=== PATIENT | female | born 1950 | race Caucasian/White ===

== ENCOUNTER 2017-01-04 12:34 | Outpatient (CLI) | payer MEDICARE ==
--- NOTE | 2017-01-04 13:44 | Mammography Report ---
DIGITAL DIAGNOSTIC BILATERAL MAMMOGRAM: 01/04/2017 CLINICAL INDICATION: Left breast tenderness lower outer quadrant. COMPARISON: 03/2015, 12/2013, 11/2011, 11/2010, 12/2008, 11/2007. TECHNIQUE: Bilateral CC and MLO views, left true lateral and laterally exaggerated craniocaudal view s. Markers were placed at the site of maximal tenderness identified by the patient in the left lower outer quadrant. FINDINGS: The breasts again demonstrate scattered fibroglandular densities bilaterally. A few coars e, typically benign calcifications are present. No suspicious masses, clustered microcalcifications, or regions of architectural distortion are identified. Specifically, no mammographic abnormality is appreciated in the left lower outer quadrant, at the site indicated by the markers. IMPRESSION: BENIGN FINDINGS. RECOMMENDATION: Routine annual screening unless otherwise clinically indicated. BI-RADS category 2, benign findings. STANDARD QUALIFYING STATEMENTS 1. This examination was reviewed with the aid of Computer-Aided Detection (CAD). 2. A negative or benign imaging report should not delay biopsy if clinically suspicious findings are present. Consider surgical consultation if warranted. More than 5% of cancers are not identified by i ing. 3. Dense breasts may obscure an underlying neoplasm. JOB #: [id number] EXT JOB #:
== END 2017-01-04 12:35 | disposition home or self-care (01) ==
LOC: DI 12:34
PROVIDERS: ATTEND Nurse Practitioner Family
DX: N64.4 Mastodynia (principal)
CPT/HCPCS: 77066

== ENCOUNTER 2019-01-30 10:07 | Outpatient (CLI) | payer MEDICARE ==
--- NOTE | 2019-01-30 14:48 | Mammography Report ---
Reason: SCREENING MAMMOGRAPHY Procedure Date: 01/30/2019 Accession Number: [id number] / [id number] Procedure: OCTAVIO - Screening Mammo w/Tejas CPT Code: FULL RESULT: EXAM: Screening Mammo w/Tejas DATE: 01/30/2019 10:40 AM CLINICAL HISTORY: Screening TECHNIQUE: (B) - Bilateral CC and MLO views were obtained. COMPARISON: 01/04/2017, 04/29/2015, 01/15/2014 PARENCHYMAL PATTERN: (A) - The breasts demonstrate scattered fibroglandular densities bilaterally. FINDINGS: There are no suspicious masses, calcifications, or areas of distortion. IMPRESSION: Negative examination. BI-RADS category 1. RECOMMENDATION: (ANNUAL) - Recommend routine annual screening mammography. BI-RADS CATEGORY: (1) - Negative. STANDARD QUALIFYING STATEMENTS: 1. This examination was not reviewed with the aid of Computer-Aided Detection (CAD). 2. A negative or benign imaging report should not preclude biopsy if clinically suspicious findings are present. 3. Dense breasts may obscure an underlying neoplasm. 4. This examination was reviewed with the aid of 3D breast imaging (tomosynthesis).
== END 2019-01-30 10:08 | disposition home or self-care (01) ==
LOC: DI 10:07
PROVIDERS: ATTEND Registered Nurse
DX: Z12.31 Encounter for screening mammogram for malignant neoplasm of breast (principal)
CPT/HCPCS: 77063; 77067

== ENCOUNTER 2019-02-06 14:09 | Outpatient (CLI) | payer MEDICARE ==
--- NOTE | 2019-02-10 12:15 | DEXA Report ---
Reason: POSTMENOPAUSAL,SCREENING FOR OSTEOPOROSIS Procedure Date: 02/06/2019 Accession Number: [id number] / [id number] Procedure: DEX - Dexa Spine and/or Hip CPT Code: FULL RESULT: EXAM: Dexa Spine and/or Hip DATE: 02/06/2019 2:34 PM CLINICAL HISTORY: POSTMENOPAUSAL,SCREENING FOR OSTEOPOROSIS TECHNIQUE: Dual energy x-ray absorptiometry (DXA) was performed on a Aspida System. Regions measured are the AP Spine, femoral neck, and if needed forearm. COMPARISON: None. In accordance with the International Society for Clinical Densitometry (ISCD) guidelines, data from previous exams may be reanalyzed using current recommendations and techniques. This is done to allow a more accurate basis for comparison with the current study. FINDINGS: The data for the lumbar spine is as follows: BMD (g/cm/cm) T-SCORE Z-SCORE REGION L1 1.201 0.6 1.8 L2 1.443 2.0 3.2 L3 1.453 2.1 3.3 L4 1.407 1.7 2.9 TOTAL 1.382 1.7 2.9 NOTE: All evaluable vertebrae are used for classification The data for the hip is as follows: BMD (g/cm/cm) T-SCORE Z-SCORE REGION Neck 0.889 -1.1 0.3 TOTAL 0.941 -0.5 0.6 NOTE: The femoral neck or total proximal femur, whichever is lowest, is used for classification. IMPRESSION: THE WHO CLASSIFICATION BASED ON THE INTERNATIONAL REFERENCE STANDARD IS OSTEOPENIA. THE FRACTURE RISK IS INCREASED. RECOMMENDATION: Patients with diagnosis of osteoporosis or osteopenia should have regular bone mineral density assessment. For those eligible for Medicare, routine testing is allowed once every 2 years. Testing frequency can be increased for patients who have rapidly progressing disease or for those who are receiving medical therapy to restore bone mass. COMMENT: World Health Organization (WHO) definitions for osteoporosis and osteopenia: NORMAL BMD: T-score at -1.0 or higher, fracture risk is low OSTEOPENIA BMD: T-score between -1.0 and -2.5, fracture risk is increased. OSTEOPOROSIS BMD: T-score at -2.5 or lower, fracture risk is high. National Osteoporosis Foundation recommends: 1. Obtain adequate dietary calcium (at least 1200 mg per day) and vitamin D (400-800 international units per day). 2. Participate, as appropriate, in regular weightbearing and muscle-strengthening exercise. 3. Avoid tobacco use and reduce alcohol and caffeine intake. 4. For more detailed information see the website at www.NOF.org.
== END 2019-02-06 14:10 | disposition home or self-care (01) ==
LOC: DI 14:09
PROVIDERS: ATTEND Registered Nurse
DX: Z13.820 Encounter for screening for osteoporosis (principal); M85.88 Other specified disorders of bone density and structure, other site; Z78.0 Asymptomatic menopausal state
CPT/HCPCS: 77080

== ENCOUNTER 2019-12-11 18:37 | Outpatient (CLI) | payer MEDICARE | END 2019-12-11 18:38 | disposition EMS.NT | LOC: EMS 18:37 | PROVIDERS: ATTEND Surgery | DX: R09.89 Other specified symptoms and signs involving the circulatory and respiratory systems (principal) ==

== ENCOUNTER 2019-12-11 23:23 | Outpatient (CLI) | payer MEDICARE | END 2019-12-11 23:24 | disposition short-term general hospital (02) | LOC: EMS 23:23 | PROVIDERS: ATTEND Surgery | DX: R00.0 Tachycardia, unspecified (principal); R55 Syncope and collapse; R61 Generalized hyperhidrosis | CPT/HCPCS: A0425; A0427 ==

== ENCOUNTER 2020-11-11 13:55 | Outpatient (CLI) | payer MEDICARE ==
[2020-11-11 20:48] LABS: THYROID STIMULATING HORMONE 1.78 uIU/mL (0.34-5.60)
[2020-11-11 20:49] LABS: FREE T3 3.18 pg/mL (2.5-3.9)
[2020-11-11 20:50] LABS: FREE T4 (FREE THYROXINE) 1.08 ng/dL (0.58-1.64)
== END 2020-11-11 13:56 | disposition home or self-care (01) ==
LOC: LAB.S 13:55
PROVIDERS: ATTEND Registered Nurse
DX: E89.0 Postprocedural hypothyroidism (principal)
CPT/HCPCS: 36415; 84439; 84443; 84481

== ENCOUNTER 2021-09-08 10:11 | Outpatient (CLI) | payer MEDICARE ==
[2021-09-08 15:37] LABS: ALBUMIN 4.2 g/dL (3.2-5.5); ALBUMIN/GLOBULIN RATIO 1.6 (1.0-2.2); BILIRUBIN,TOTAL 0.7 mg/dL (0.2-1.0); CREATININE 0.7 mg/dL (0.4-1.0); POTASSIUM 3.4 mmol/L (3.5-5.0); TOTAL PROTEIN 6.9 g/dL (6.7-8.2)
[2021-09-08 16:21] LABS: FREE T3 2.99 pg/mL (2.5-3.9); FREE T4 (FREE THYROXINE) 0.99 ng/dL (0.58-1.64)
== END 2021-09-08 10:12 | disposition home or self-care (01) ==
LOC: LAB.S 10:11
PROVIDERS: ATTEND Registered Nurse
DX: I10 Essential (primary) hypertension (principal); E89.0 Postprocedural hypothyroidism
CPT/HCPCS: 36415; 80053; 84439; 84443; 84481

== ENCOUNTER 2022-08-04 05:54 | Emergency (ER) | payer MEDICARE ==
[2022-08-04 06:05] VITALS: BP 150/88
[2022-08-04] MEDS ORDERED: CHERRY SYRUP 10 ML UDC PO ONE (06:46)
[2022-08-04] MEDS ORDERED: DEXAMETHASONE 10 MG/ML VIAL PO STA (06:46)
--- NOTE | 2022-08-04 06:48 | ED Physician Documentation ---
PD HPI HEENT - Stated complaint Stated Complaint: MEDICATION REQUEST - Chief complaint Chief Complaint: Heent - History obtained from History obtained from: Patient, Family - History of Present Illness Timing - onset: How many days ago (5) Timing - duration: Days (5) Timing - details: Gradual onset, Still present Location: Left ear, Nose, Throat Improves: Medication Worsens: Swalllowing Associated symptoms: Congestion, Rhinorrhea, Cough, Other ("goopy" eyes). No: Fever Similar symptoms before: Diagnosis (OM) Recently seen: Clinic - Additional information Additional information: 71-year-old Camelia sprague has developed an upper respiratory tract infection with a cough and congestion she developed a sore throat associated with this and has had drainage and redness to her eyes. She had some congestion to her sinuses as well this is seems to be improved and despite this she is developing increasing pain and loss of hearing in the right ear. She has been in to see the eye doctor and has been given some TobraDex eyedrops. She is used these 3 times and is found that is helped with the gravel-like feeling in her eyes. Review of Systems Constitutional: denies: Fever Eyes: reports: Discharge, Irritation. denies: Decreased vision Ears: reports: Loss of hearing, Ear pain, Tinnitus/ringing Nose: reports: Rhinorrhea / runny nose, Congestion Throat: reports: Sore throat (Improved) Cardiac: denies: Chest pain / pressure, Palpitations Respiratory: reports: Cough. denies: Dyspnea, Wheezing GI: denies: Abdominal Pain, Vomiting, Diarrhea : denies: Dysuria, Frequency PD PAST MEDICAL HISTORY - Past Medical History Cardiovascular: Hypertension Respiratory: Sleep apnea Endocrine/Autoimmune: HyPERthyroidism, HyPOthyroidism GI: GERD Musculoskeletal: Osteoarthritis - Past Surgical History Past Surgical History: Yes General: Colonoscopy - Present Medications Home Medications: Ambulatory Orders Medication Instructions Recorded Confirmed Duloxetine HCl [Cymbalta] 80 mg PO DAILY 05/01/15 05/01/15 Hydroxychloroquine [Plaquenil] 200 mg PO DAILY 05/01/15 05/01/15 Levothyroxine [Synthroid] 150 mcg PO QDAC 05/01/15 05/01/15 Liothyronine [Cytomel] 5 mcg PO BID 05/01/15 05/01/15 Losartan [Cozaar] 100 mg PO DAILY 05/01/15 05/01/15 Omeprazole [Prilosec] 20 mg PO BID 05/01/15 05/01/15 Potassium Chloride [K-Dur] 20 meq PO 0800 05/01/15 05/01/15 Triamterene/Hydrochlorothiazid 1 each PO DAILY 05/01/15 05/01/15 [Triamterene-Hctz 37.5-25 mg Cp] diltiaZEM [Cardizem] 60 mg PO DAILY 05/01/15 05/01/15 Amox/Clav 875/125 [Augmentin] 1 each PO Q12H #20 tablet 08/04/22 - Allergies Allergies/Adverse Reactions: Allergies Allergy/AdvReac Type Severity Reaction Status Date / Time propylene glycol Allergy Rash Verified 08/04/22 06:05 - Social History Does the pt smoke?: No Smoking Status: Never smoker Does the pt drink ETOH?: Yes - Immunizations Immunizations are current?: No Immunizations: TDAP >10years/unknown - POLST Patient has POLST: No PD ED PE NORMAL - Vitals Vital signs reviewed: Yes (Hypertensive) - General General: Alert and oriented X 3, No acute distress, Well developed/nourished - HEENT HEENT: Atraumatic, PERRL, EOMI, Moist mucous membranes, Other (There is scleral injection bilaterally worse on the right than the left there is drainage from both eyes into the conjunctival sac. The left TM is clear the right is erythematous with distortion of landmarks. Pharynx with minimal erythema.) - Neck Neck: Supple, no meningeal sign, No bony TTP - Cardiac Cardiac: RRR, No murmur - Respiratory Respiratory: No respiratory distress, Clear bilaterally - Abdomen Abdomen: Soft, Non tender - Back Back: No CVA TTP, No spinal TTP - Derm Derm: Normal color, Warm and dry, No rash - Extremities Extremities: No deformity, No edema - Neuro Neuro: Alert and oriented X 3, sheet layer 2-12 intact, No motor deficit, No sensory deficit, Normal speech Eye Opening: Spontaneous Motor: Obeys Commands Verbal: Oriented GCS Score: 15 - Psych Psych: Normal mood, Normal affect Results - Vitals Vitals: Vital Signs - 24 hr 08/04/22 05:59 Temperature 36.8 C Heart Rate 72 Respiratory 18 Rate Blood Pressure 150/88 H O2 Saturation 97 Oxygen O2 Source Room air PD Medical Decision Making - ED course Complexity details: considered differential, d/w patient, d/w family ED course: 71-year-old female presents to the emergency department with drainage from her eyes and reduced hearing in her right ear. She has a feeling of fullness on the whole right side of her face. She is found to have otitis on the right side. She does have what appears to be a viral conjunctivitis. She is being treated appropriately for this. Today we are treating her otitis with 10 mg of dex amethasone we will place her on a course of Augmentin. Departure - Departure Disposition: Home, Self Care Clinical Impression: Otitis media Qualifiers: Otitis media type: suppurative Chronicity: acute Laterality: right Recurrence: non-recurrent Spontaneous tympanic membrane rupture: without spontaneous rupture Qualified Code(s): H66.001 - Acute suppurative otitis media without spontaneous rupture of ear drum, right ear Condition: Stable Instructions: ED Otitis Media Acute Adult Follow-Up: Caludia Nicholson ARNP [Physician No Access] - Prescriptions: Amox/Clav 875/125 [Augmentin] 1 each PO Q12H #20 tablet Comments: Camelia, today it looks like there is an infection in the right middle ear. This is usually a bacterial process and we are prescribing some antibiotic. This has been E scribed to the [facility] in [place]. The expectation with treatment is improvement today from the dexamethasone given and continued improvement over the next several days.
== END 2022-08-04 07:00 | disposition home or self-care (01) ==
LOC: ED 05:54
DX: H66.001 Acute suppurative otitis media without spontaneous rupture of ear drum, right ear (principal); I10 Essential (primary) hypertension; E05.90 Thyrotoxicosis, unspecified without thyrotoxic crisis or storm; E03.9 Hypothyroidism, unspecified; Z79.899 Other long term (current) drug therapy
CPT/HCPCS: 99282; 99283; A9270

== ENCOUNTER 2022-11-03 08:44 | Outpatient (CLI) | payer MEDICARE ==
--- NOTE | 2022-11-03 12:10 | Ultrasound Report ---
PROCEDURE: Abdomen Limited INDICATIONS: LIVER CYST TECHNIQUE: Real-time focused scanning was performed of the abdomen, with image documentation. COMPARISONS: None. FINDINGS: Liver: Liver is overall normal in size at 15.9 cm. Heterogenous echotexture. A large right-sided sim ple hepatic cyst measuring 14.3 x 12.5 x 12.2 cm Gallbladder: Several gallbladder polyps and noted measuring up to 6 mm. No shadowing calculi or gallb ladder wall thickening. No pericholecystic fluid.. Biliary ducts: Intrahepatic bile ducts are non-dilated. Extrahepatic bile duct caliber measures 4 m m. Normal is 6-7 mm or less in diameter, or 10 mm or less post-cholecystectomy. Pancreas: Visualized portions of the pancreas are sonographically normal. Right kidney: Normal in size and echotexture. Right kidney measures 10.7 cm long. Mild right kidney renal pelvis dilation. No solid masses. No complex renal cystic lesions which require follow-up. Aorta: Visualized aorta is normal in caliber at less than 3 cm. IVC: Intrahepatic inferior vena cava is patent. Miscellaneous: No free abdominal fluid. IMPRESSION: 1. Large simple hepatic cyst, 14.3 cm. 2. Mild right renal pelvocaliectasis or mild hydronephrosis. 3. Gallbladder wall polyps Reviewed by: Marco A Varela MD on 11/03/2022 11:08 AM BEV Approved by: Marco A Varela MD on 11/03/2022 11:08 AM BEV Station ID: [id number]
== END 2022-11-03 08:45 | disposition home or self-care (01) ==
LOC: DI 08:44
PROVIDERS: ATTEND Registered Nurse
DX: K76.89 Other specified diseases of liver (principal); K82.4 Cholesterolosis of gallbladder

== ENCOUNTER 2022-12-12 09:44 | Outpatient (CLI) | payer MEDICARE ==
--- NOTE | 2022-12-13 09:51 | Mammography Report ---
BILATERAL DIGITAL SCREENING MAMMOGRAM 3D/2D: 12/12/2022 CLINICAL: Routine screening. Comparison is made to exams dated: 01/30/2019 mammogram, 01/04/2017 mammogram, 04/29/2015 mammogram, an d 01/15/2014 mammogram - [facility]. Both breasts are heterogeneously dense, which may obscure small masses (category c / 51-75% glandular tissue). No significant masses, calcifications, or other findings are seen in either breast. There has been no significant interval change. IMPRESSION: NEGATIVE There is no mammographic evidence of malignancy. A 1 year screening mammogram is recommended. Based on the Tyrer Cuzick model (a risk assessment model) the patients lifetime risk is 7.9% and her 10 year risk is 6.5%. According to the ACR, ACS, and NCCN guidelines, an annual breast MRI exam mesha g with mammogram is recommended if the patients lifetime risk is 20% or greater. This exam was interpreted at Station ID: [id number]. NOTE: For mammograms, a report in lay terms will be sent to the patient. Approximately 15% of breast malignancies will not be visualized mammographically. In the management of a palpable breast mass, a negative mammogram must not discourage biopsy of a clinically suspicious lesion. Electronically Signed By: Angela almazan/ade:12/12/2022 16:08:06 letter sent: No_Letter ACR BI-RADS Category 1: Negative 3341F PARENCHYMAL PATTERN: (D) - The breast(s) demonstrate(s) heterogeneously dense fibroglandular carlos boyd. BI-RADS CATEGORY: (1) - 1 Mammogram [id number] 1 year screening LATERALITY: (B)
== END 2022-12-12 09:45 | disposition home or self-care (01) ==
LOC: DI 09:44
PROVIDERS: ATTEND Registered Nurse
DX: Z12.31 Encounter for screening mammogram for malignant neoplasm of breast (principal)

== ENCOUNTER 2023-07-20 13:41 | Outpatient (CLI) | payer MEDICARE ==
--- NOTE | 2023-07-20 14:58 | XRAY Report ---
PROCEDURE: Ankle 3+V RT INDICATIONS: RIGHT FOOT PAIN TECHNIQUE: 3 views of the ankle were acquired. COMPARISON: None. FINDINGS: Bones: No fractures or dislocations. Ankle mortise is normally aligned. No suspicious bony lesions . Plantar calcaneal enthesophyte. Midfoot joint space or with osteophytosis. Soft tissues: No tibiotalar joint effusion. Achilles tendon appears normal. IMPRESSION: No acute bony abnormality. Midfoot and calcaneal osteoarthritis. Reviewed by: iAme Du MD on 07/20/2023 2:56 PM PDT Approved by: Aime Du MD on 07/20/2023 2:56 PM PDT Station ID: [id number]
--- NOTE | 2023-07-20 14:58 | XRAY Report ---
PROCEDURE: Foot 3+V RT INDICATIONS: RIGHT FOOT PAIN TECHNIQUE: 3 views of the foot were acquired. COMPARISON: None. FINDINGS: Bones: No fractures or dislocations. No suspicious bony lesions. Interphalangeal joint space narro wing with osteophytosis. Midfoot joint space narrowing with osteophytosis. Plantar calcaneal entheso phytes. Soft tissues: No tibiotalar joint effusion. Achilles tendon appears normal. IMPRESSION: Interphalangeal, midfoot and plantar calcaneal osteoarthritis. Reviewed by: Aime uD MD on 07/20/2023 2:57 PM PDT Approved by: Aime Du MD on 07/20/2023 2:57 PM PDT Station ID: [id number]
== END 2023-07-20 13:42 | disposition home or self-care (01) ==
LOC: DI.S 13:41
PROVIDERS: ATTEND Registered Nurse
DX: M19.071 Primary osteoarthritis, right ankle and foot (principal)

== ENCOUNTER 2023-12-18 11:13 | Outpatient (CLI) | payer MEDICARE ==
--- NOTE | 2023-12-18 12:29 | XRAY Report ---
PROCEDURE: Knee 3V RT INDICATIONS: OSTEOARTHRITIS TECHNIQUE: 3 views of the knee(s) were acquired. COMPARISON: None. FINDINGS: Bones: No fractures or dislocations. No suspicious bony lesions. Tricompartmental joint space ney rowing with associated osteophytosis. Soft tissues: No knee joint effusion. No suspicious soft tissue calcifications or masses. IMPRESSION: No acute bony abnormality. Mild to moderate tricompartmental osteoarthritis. Kellgren-Azeem scale of osteoarthritis: 2. Reviewed by: Aime Du MD on 12/18/2023 12:28 PM PDT Approved by: Aime Du MD on 12/18/2023 12:28 PM PDT Station ID: [id number]
== END 2023-12-18 11:14 | disposition home or self-care (01) ==
LOC: DI.S 11:13
PROVIDERS: ATTEND Registered Nurse
DX: M17.11 Unilateral primary osteoarthritis, right knee (principal)